=== PATIENT | male | born 1950 | race Caucasian/White ===

== ENCOUNTER 2021-10-31 06:32 | Day surgery (SDC) | payer MEDICARE ==
[2021-10-27 11:30] LABS: BASOPHILS % (AUTO) 0.4 % (0.0-5.0); EOSINOPHILS % (AUTO) 6.7 % (0.0-8.0); LYMPHOCYTES % (AUTO) 25.5 % (21.0-51.0); MEAN CORPUSCULAR HEMOGLOBIN 29.9 pg (27.0-33.0); MEAN CORPUSCULAR HGB CONC 33.6 g/dL (32.0-36.0); MONOCYTES % (AUTO) 9.1 % (3.0-13.0); NEUTROPHILS % (AUTO) 57.9 % (40.0-77.0); PLATELET COUNT (AUTO) 218 K/uL (130-400); RED BLOOD CELL COUNT(AUTO) 5.28 MIL/uL (4.50-6.20); RED CELL DISTRIBUTION WIDTH 12.6 % (11.0-15.5); WHITE BLOOD COUNT (AUTO) 7.6 K/uL (4.8-10.8)
[2021-10-27 11:43] LABS: PROTHROMBIN TIME 10.9 SEC (9.6-11.6)
[2021-10-27 11:45] LABS: PARTIAL THROMBOPLASTIN TIME 26.9 SEC (26.3-35.5)
[2021-10-27 11:47] LABS: BILIRUBIN,TOTAL 0.5 mg/dL (0.2-1.0); CREATININE 1.6 mg/dL (0.5-1.5); POTASSIUM 4.6 mmol/L (3.5-5.1)
[2021-10-30 09:50] VITALS: BP 108/66
[~2021-10-31] VITALS: Ht 180.3 cm; Wt 99.8 kg
[2021-10-31] VITALS (10 sets, daily range): BP systolic 123–138; BP diastolic 61–83
[~2021-10-31 06:32] MED LIST: FENO134C PO; FLUT1BLS IH; FOLI0.8T2 PO; LOSA50TA64 PO; METO-391 PO; ROSU20TA23 PO; SIRO1TAB3 PO; TRAZ-187 PO
[2021-10-31] MEDS ORDERED: CEFAZOLIN SODIUM 1 GM VIAL ONE (06:49)
[2021-10-31] MEDS ORDERED: 0.9%NACL 1000ML 1,000 ML IV ONE (06:49)
[2021-10-31] MEDS ORDERED: LIDOCAINE 1%-EPI 1:100,000 20 ML VIAL IJ ONE (07:13)
[2021-10-31] MEDS ORDERED: BACITRACIN 28.4 GM OINT TP ONE (07:13)
[2021-10-31] MEDS ORDERED: MIDAZOLAM HCL 1 MG/ML 2ML VIAL ONE (07:19)
[2021-10-31] MEDS ORDERED: FENTANYL CITRATE PF 50 MCG/1 ML 2ML VIAL ONE (07:20)
[2021-10-31] MEDS ORDERED: PROPOFOL 10 MG/ML 20ML VIAL IV ONE (07:20)
[2021-10-31] MEDS ORDERED: CEFAZOLIN SODIUM 1 GM VIAL IVP ONE (08:00)
[2021-10-31] MEDS ORDERED: INSULIN PUMP SQ (08:10)
== END 2021-10-31 10:25 | disposition home or self-care (01) ==
LOC: DAH 06:32
PROVIDERS: ATTEND Otolaryngology Plastic Surgery within the Head & Neck
DX: C44.1192 Basal cell carcinoma of skin of left lower eyelid, including canthus (principal); Z20.822 Contact with and (suspected) exposure to COVID-19; C44.319 Basal cell carcinoma of skin of other parts of face; I10 Essential (primary) hypertension; E11.9 Type 2 diabetes mellitus without complications; Z98.890 Other specified postprocedural states; Z79.899 Other long term (current) drug therapy; Z79.01 Long term (current) use of anticoagulants
CPT/HCPCS: 11642; 11643; 36415; 71045; 80053; 82948 ×2; 85025; 85610; 85730; 87635; 88305; 88331; 88332; 93005; A4215; A4221; A4222; A4223; A4606; A4663; A4930; A6260; C9803; J0690; J2250; J2704; J3010; J3490; J7030